=== PATIENT | male | born 1950 | race Caucasian/White ===

== ENCOUNTER 2022-01-28 20:51 | Emergency (ER) | payer MEDICARE ==
[~2022-01-28] VITALS: Ht 180.3 cm; Wt 105.9 kg
[~2022-01-28 20:51] MED LIST: CELEBREX100 MG PO; ELIGARD22.5 MG SUB-Q; LOVASTATIN20 MG PO; MULTI VITAMIN1 EACH PO; TAMSULOSIN HCL0.4 MG PO; VITAMIN D3125 MC1 PO; ZESTRIL10 MG PO; ZYLOPRIM100 MG PO
== END 2022-01-28 21:34 | disposition home or self-care (01) ==
LOC: ED 20:51
DX: T16.1XXA Foreign body in right ear, initial encounter (principal); I10 Essential (primary) hypertension; Z88.1 Allergy status to other antibiotic agents; W45.8XXA Other foreign body or object entering through skin, initial encounter
CPT/HCPCS: 69200; 99282-25

== ENCOUNTER 2022-06-17 07:00 | Day surgery (SDC) | payer MEDICARE ==
[~2022-06-17] VITALS: Ht 185.4 cm; Wt 113.0 kg
[~2022-06-17 07:00] MED LIST changes: +CALCIUM500 MG PO; +CO Q-10200 MG PO; +OMEGA 3 1,0001 EACH PO; +VITAMIN C1000 MG PO; +ZINC30 MG PO
--- NOTE | 2022-06-17 10:11 | NUR ---
06/17/22 Reina1 Maryuri Adams 1007-PATIENT ARRIVED TO PACU ON 3L NC PLACED ON 2L NC RR EVEN. PATIENT LAYING LEFT LATERAL HOB ELEVATED. PATIENT REACTIVE TO VERBAL STIMULI OPENING EYES ASKING "ARE WE DONE" ORIENTED TO PACU. REMAINS VERY DROWSY DOZES BACK TO SLEEP ABDOMEN SOFT PASSING GAS IVF INFUSING
--- NOTE | 2022-06-18 06:38 | OR ---
[facility] [address], [place] [address] Signed DATE OF OPERATION: 06/17/2022 SURGEON: Anju Ibarra MD PREOPERATIVE DIAGNOSES: 1. Personal history of colonic polyps in 2018. 2. Radiation therapy for prostate cancer in 2008. 3. Rectal bleeding associated with bowel movements. POSTOPERATIVE DIAGNOSES: 1. Distal radiation proctitis with biopsy. 2. The 4 mm polyps at 15 cm, 60 cm, 85 cm, proximal right colon and 80 cm. 3. A 5 mm polyp at 20 cm (rectosigmoid junction). PROCEDURE: Colonoscopy with hot biopsy. ESTIMATED BLOOD LOSS: None. INDICATIONS: Jarrett is a 71-year-old gentleman asked to see me for his followup colonoscopy. He lived in [place], [place] for quite some time. His last colonoscopy was in 2018 at [facility] in [place], [place]. He was pretty certain the polyp had been removed, return to track down that procedure note. He also had prostate cancer in 2008. He has undergone radiation therapy. He is having some rectal bleeding associated with bowel movements. His PET scan in 2021 showed a little thickening at the GE junction, but no other obvious areas of uptake. Upper endoscopy showed a tiny hiatal hernia. He did well with Versed and fentanyl. He gives no family history of colon cancer or polyps. In the office, I had given him a brochure on colonoscopy. We reviewed the nature of the test. There is risk including, but not limited to gas bloating, crampy abdominal pain, bleeding, perforation requiring surgery, and missed diagnosis. We also reviewed the need for IV conscious sedation. He had expressed understanding and wished to proceed. DESCRIPTION OF PROCEDURE: Jarrett was taken into the endoscopy suite and placed in the left lateral decubitus position. He was given Versed and fentanyl for the procedure. A digital rectal exam was performed. He essentially has no prostate. There was no nodularity. He had good sphincter tone. The adult colonoscope was introduced. We could immediately see an area of distal proctitis in the area of the prostate gland. We went and took a biopsy. The Electronically Signed By: ANJU IBARRA MD 06/18/22 0638 PATIENT NAME: JARRETT WALKER OPERATIVE REPORT DATE OF : 52 REPORT #: [id number] PHYSICIAN: ANJU IBARRA MD PCP: TOM MADDEN MD REPORT IS CONFIDENTIAL AND NOT TO BE RELEASED WITHOUT AUTHORIZATION [facility] [address], [place] [address] Signed scope had been pushed all up in the cecum under direct visualization of camera without difficulty. His prep was average. He could probably use a little more bowel prep on his next colonoscopy. The scope was then slowly withdrawn. We took pictures throughout for photodocumentation. The above-mentioned polyps were easily removed with the help of hot biopsy forceps. We thought we saw some diverticula going in, but we did not see those coming out. Once in the rectum, the scope had been retroflexed. We did not see any obvious additional pathology above the anal canal. After this, the gas was suctioned out. The colonoscope removed. Jarrett tolerated the procedure quite well. RECOMMENDATIONS: I will see Jarrett back in my office in 7 to 14 days to review his results. In the future, he should have additional bowel prep. Anju Ibarra MD ALB/MODL /[id number] cc: MD Anju Reyna MD Patient Chart Copies: TOM MADDEN MD, ANDREW L MD ~ Electronically Signed By: ANJU IBARRA MD 06/18/22 0638 PATIENT NAME: JARRETT WALKER OPERATIVE REPORT DATE OF : 52 REPORT #: [id number] PHYSICIAN: ANJU IBARRA MD PCP: TOM MADDEN MD REPORT IS CONFIDENTIAL AND NOT TO BE RELEASED WITHOUT AUTHORIZATION
== END 2022-06-17 11:00 | disposition home or self-care (01) ==
LOC: DS 07:00
PROVIDERS: ATTEND Colon & Rectal Surgery
PROC: 0DBN8ZX Excision of Sigmoid Colon, Via Natural or Artificial Opening Endoscopic, Diagnostic (ICD-10-PCS; 2022-06-17)
PROC: 0DBK8ZX Excision of Ascending Colon, Via Natural or Artificial Opening Endoscopic, Diagnostic (ICD-10-PCS; principal; 2022-06-17 08:15)
DX: K62.7 Radiation proctitis (principal); K63.5 Polyp of colon; Z86.010 Personal history of colon polyps; I10 Essential (primary) hypertension; N40.0 Benign prostatic hyperplasia without lower urinary tract symptoms; Z88.1 Allergy status to other antibiotic agents; K62.5 Hemorrhage of anus and rectum; C79.51 Secondary malignant neoplasm of bone; M1A.09X0 Idiopathic chronic gout, multiple sites, without tophus (tophi); E66.9 Obesity, unspecified; Z68.34 Body mass index [BMI] 34.0-34.9, adult; D12.5 Benign neoplasm of sigmoid colon; K62.1 Rectal polyp
CPT/HCPCS: 99153; G0500; J2250; J3010; J3490; J7121

== ENCOUNTER 2023-04-15 05:57 | Day surgery (SDC) | payer MEDICARE ==
[2023-04-07 08:32] VITALS: BP 130/92
[~2023-04-15] VITALS: Ht 182.9 cm; Wt 114.5 kg
--- NOTE | ~2023-04-15 | OR ---
[facility] [address], [place] [address] Draft DATE OF OPERATION: 04/15/2023 SURGEON: To Ceballos MD, PH.D. PREOPERATIVE DIAGNOSIS: Prostate adenocarcinoma. POSTOPERATIVE DIAGNOSIS: Prostate adenocarcinoma. PROCEDURE: 1. Rectal ultrasound-guided implantation of radioactive iodine-125 seeds into the prostate gland. 2. Placement of SpaceOAR Hydrogel between the prostate gland and rectum. ANESTHESIA: General. ESTIMATED BLOOD LOSS: Minimal. COMPLICATIONS: None. ANTIBIOTICS: IV levofloxacin. DIAGNOSIS: Jarrett Walker is a 72-year-old gentleman who was diagnosed with a Stilwell grade 4 + 4 equals 8, PSA 11 prostate adenocarcinoma in February 2009. He received neoadjuvant, concurrent, and adjuvant hormone therapy along with radiation to a dose of 45 Gy to the pelvic lymph nodes and 75.6 Gy to the prostate gland ending in 2009. Unfortunately, his PSA was seen to be rising after he discontinued his hormone therapy. Eventually, his hormone therapy was restarted in 2018, and his PSA went undetectable. However, his PSA has been rising over the past several years, indicating early hormone refractory disease. The patient had a prostate biopsy on October 07, 2022, demonstrating Renetta grade 3 + 4 equals 7 disease in the right lateral mid, right lateral base, and right medial mid cores and Stilwell grade 3 + 3 equals 6 prostate cancer in the right medial base core. A PSMA PET-CT scan on January 16, 2023, demonstrated uptake only in the right prostate lobe with a maximum SUV of 17.1. He elected to proceed with a salvage PATIENT NAME: JARRETT WALKER OPERATIVE REPORT DATE OF : 52 REPORT #: [id number] PHYSICIAN: TO CEBALLOS MD PCP: TOM MADDEN MD REPORT IS CONFIDENTIAL AND NOT TO BE RELEASED WITHOUT AUTHORIZATION [facility] [address], [place] [address] Draft radioactive seed implant. Prescription dose: 100 Gy prescribed to the prostate gland with a boost to a dose of 130 Gy to the gross tumor volume in the right lobe of the prostate gland utilizing iodine-125 seeds with 0.219 millicurie activity. OPERATIVE DESCRIPTION: Following induction of adequate anesthesia, the patient was placed in the treatment planning dorsal lithotomy position. The perineum was prepped with Betadine and a Rosenthal catheter was inserted into the bladder without difficulty. The scrotum was elevated onto the abdominal wall and secured with Ioban. The fixation support system was fixed to the table and the ultrasound probe was affixed to the system. Transrectal ultrasound examination of the prostate was performed with a 6 megahertz probe, taking sagittal and transverse views to localize the prostate gland and to make sure the images conformed to the preoperative plan. Once the proper angulation and position were obtained, the apparatus was fixed in position. The template was then attached to the apparatus. Then, individual preloaded needles were inserted, one needle at the time through the template and perineal skin and into the prostate gland according to the preoperative plan. Each individual needle was identified on the ultrasound images and inserted into position as close as possible to the pretreatment plan on axial images. Two anchor needles were placed initially to help stabilize the prostate gland. Then, starting anteriorly, one row of needles were placed 1st. The proper depth of each needle was then confirmed on sagittal images and also by measuring the distance from the template to the hub of each needle with a ruler. Then, needles were slowly withdrawn with the stylet in place, so that the stranded seeds were placed in the prostate gland in the proper position. Then, subsequent rows of needles were placed, one at a time with placement of all the seeds from each row before proceeding to the next row. AP pelvic x-rays were taken periodically to confirm the proper position of the radioactive seeds. The treatment plan called for 67 seeds to be implanted utilizing 21 needles. However, it was determined that needle 16 had a strand length that was too long and would result in seeds potentially ending up in the rectal wall. Therefore, needle 16 was not deployed, and 4 individual seeds were instead placed, one at a time within the prostate gland in a similar position in the right posterior aspect of the gland. Therefore, in all, 67 seeds were placed utilizing 24 needles for a total activity of 14.67 millicuries. There was minimal bony interference encounter during the procedure. Following the insertion of the seeds, an AP pelvic x-ray was taken, which revealed seeds to be in the proper position within the pelvis. Then, the ultrasound probe was repositioned in a more flattened angulation. Under ultrasound guidance, an 18-gauge needle was inserted into the perineum and advanced into the perirectal fat posterior to PATIENT NAME: JARRETT WALKER OPERATIVE REPORT DATE OF : 52 REPORT #: [id number] PHYSICIAN: TO CEBALLOS MD PCP: TOM MADDEN MD REPORT IS CONFIDENTIAL AND NOT TO BE RELEASED WITHOUT AUTHORIZATION [address] [address] Draft the prostate gland. The needle position was confirmed in both the sagittal and axial views. Saline was used to dissect the space between the Denonvilliers fascia and anterior rectal wall. Care was taken to ensure that the needle tip was not in the rectal wall. While maintaining the desired position, aspiration was performed to ensure that the needle was not in the vascular space. The assembled SpaceOAR Ana delivery system was then attached to the 18-gauge needle. Under ultrasound guidance utilizing the sagittal view, a smooth continuous injection technique was used to dispense the SpaceOAR Ana Hydrogel into the space between the prostate gland and rectum. The entire syringe contents (10 cubic centimeters total) were injected without stopping over approximately 20 seconds. Optimal visualization of the needle during Hydrogel administration was maintained at all times. No suspected penetration or compromise of the rectal wall occurred. Afterwards, the patient had a cystoscopy performed by Dr. Schultz (see separate operative report) with no seeds seen in the urethra or bladder. The patient tolerated the procedure well and was taken to the recovery room in good condition. He passed a voiding trial prior to discharge. DISPOSITION: The patient will have a follow up visit with me in one month and will have a CT scan of the pelvis performed for post implant dosimetry. He was told to phone our office if he has any difficulties or problems. CONDITION: Stable. To Ceballos MD, PH.D. GALLO/MODL /[id number] cc: DO Carrington Parisi MD Aimee Rogers, MD PATIENT NAME: JARRETT WALKER OPERATIVE REPORT DATE OF : 52 REPORT #: [id number] PHYSICIAN: TO CEBALLOS MD PCP: TOM MADDEN MD REPORT IS CONFIDENTIAL AND NOT TO BE RELEASED WITHOUT AUTHORIZATION [facility] [address], [place] [address] [place] Batsheva Maza PA-C Copies: CARRINGTON COWART MD, AIMEE MD ~ PATIENT NAME: JARRETT WALKER OPERATIVE REPORT DATE OF : 52 REPORT #: [id number] PHYSICIAN: TO CEBALLOS MD PCP: TOM MADDEN MD REPORT IS CONFIDENTIAL AND NOT TO BE RELEASED WITHOUT AUTHORIZATION
[2023-04-15 06:11] VITALS: BP 138/82
--- NOTE | 2023-04-15 06:30 | NUR ---
CHAPLAIN RHOADES RESPONDED TO REQUEST FOR PRAYER. PROVIDED PRAYER.
--- NOTE | 2023-04-15 11:04 | NUR ---
04/15/23 1104 Lexus Griffin 1043 PT TO PACU FROM OR. ORAL AIRWAY IN PLACE WITH MASK AND O2 AT 6L. RESPIRATIONS KARIN AND UNLABORED. 1045 ORAL AIRWAY DC'D. 1053 O2 DC'D. PT DENIES PAIN AND NAUSEA. PERINEUM HAS NO DRAINAGE. PT AWAKE AND CONVERSING, BUT DROWSY. STATES HE IS "GLAD IT'S DONE. I'VE BEEN DEALING WITH MR. CANCER FOR A LONG TIME."
[2023-04-15 11:21] VITALS: BP 130/80
--- NOTE | 2023-04-15 11:28 | NUR ---
LE 1120 PATIENT BACK INTO ROOM 7. REPORT RECIEVED FROM SHAINA BERNARD. PATIENT ALERT AND ORIENTED. PATIENT BREATHING EQUAL AND UNLABORED. OXYGEN SATURATIONS ABOVE 90% ON ROOM AIR. PATIENT DENIES BEING NAUSEATED. PATIENT DENIES PAIN BUT STATES "I FEEL LIKE THEY HAVE DONE SOMETHING." SURGICAL SITE HAS NO DRAINAGE AT THIS TIME. IVF INFUSING. SCD'S ON. PATIENT DRINKING WATER AND EATING PUDDING. CALL LIGHT WITHIN REACH NO FUTHER NEEDS. NO QUESTIONS AT THIS TIME.
[2023-04-15 12:20] VITALS: BP 129/83
--- NOTE | 2023-04-15 13:16 | NUR ---
LE 1220 PATIENT ABLE TO DRINK AND EAT PUDDING. PATIENT ALERT AND ORIENTED. PATIENT COMPLAINS OF BEING NAUSEATED WITH STANDING. PATIENT BACK TO BED. PATIETN ABLE TO VOID CLEAR AND YELLOW URINE. PATIENT COMPLAINING OF SOMETHING IN LEFT EYE. PATIENT EYE WASHED OUT WITH ASSISTANCE. PATIENT LAYING IN BED RESTING BREATHING EQUAL AND UNLABORED. OXYGEN SATURATIONS ABOVE 90% ON ROOM AIR. CALL LIGHT WITHIN REACH NO FUTHER NEEDS. LE 1300 WALKED IN ON PATIENT DRESSING SELF. PATIENT STATES NAUSEA HAS IMPROVED. PATIENT GAIT IMPROVED. PATIENT STILL FEELS LIKE SOMETHING IS IN HIS EYE. PATIENT TO MONITOR AT HOME. PATIENT WANTING TO DISCHARGE. PATIENT GIVEN DISCHARGE INSTRUCTIONS. NO QUESTIONS OR FUTHER NEEDS. IV D/C'D WNL. PATIENT WAS WHEELED OUT TO PRIVATE AUTO TO FRIEND ONEL THAT HE LIVES WITH.
--- NOTE | 2023-04-16 18:53 | OR ---
[facility] [address], [place] [address] Signed DATE OF OPERATION: 04/15/2023 SURGEON: Samir Jackson MD PREOPERATIVE DIAGNOSIS: History of recurrent hormone refractory prostate cancer. POSTOPERATIVE DIAGNOSIS: History of recurrent hormone refractory prostate cancer. NAMES OF PROCEDURE: Diagnostic cystourethroscopy. ANESTHESIA: General. ESTIMATED BLOOD LOSS: None. DRAINS: None. COMPLICATIONS: None. INDICATIONS FOR PROCEDURE: Mr. Walker is a 72-year-old gentleman with a history of recurrent hormone refractory prostate cancer, who presents today to undergo brachytherapy seed implant by Dr. Keenan Ceballos. Dr. Ceballos has requested that I perform cystoscopy after seed placement to evaluate for any potential brachytherapy seeds within the bladder or the prostate. FINDINGS: 1. On cystoscopy, there was no evidence of any suspicious masses, lesions, or stones. In particular, there is no evidence of any rogue seed implants present within either the bladder or the urethra. 2. There is just a minor amount of lateral lobe hypertrophy, and there is no evidence of urethral stricture or stenosis. DESCRIPTION OF PROCEDURE: After informed consent was obtained, the patient was taken back to the operating room. Electronically Signed By: SAMIR JACKSON MD 04/16/23 185 PATIENT NAME: CLEMENT WALKER OPERATIVE REPORT DATE OF : 52 REPORT #: [id number] PHYSICIAN: SAMIR JACKSON MD PCP: TOM MADDEN MD REPORT IS CONFIDENTIAL AND NOT TO BE RELEASED WITHOUT AUTHORIZATION [facility] [address] [place], [place] [address] Signed He first underwent transrectal ultrasound-guided placement of brachytherapy seeds by Dr. Keenan Ceballos. Once Dr. Ceballos was finished, he was re-prepped and draped in preparation for diagnostic cystoscopy. I then advanced a 17-Grenadian flexible cystoscope through his urethra into his bladder under direct visualization. Panendoscopic views of the bladder were then obtained. Please see above findings. I slowly withdrew the cystoscope and removed the cystoscope from the patient's bladder. The patient was straight cathed with a 16-Grenadian red rubber catheter and approximately half of his bladder was drained of irrigation fluid. The procedure was then terminated. The patient will now be transferred to the postanesthesia care unit in stable condition. MD AIYANA Duarte/MEREDITH /[id number] Copies: ~ Electronically Signed By: SAMIR JACKSON MD 04/16/23 1853 PATIENT NAME: CLEMENT WALKER OPERATIVE REPORT DATE OF : 52 REPORT #: [id number] PHYSICIAN: SAMIR JACKSON MD PCP: TOM MADDEN MD REPORT IS CONFIDENTIAL AND NOT TO BE RELEASED WITHOUT AUTHORIZATION
== END 2023-04-15 13:00 | disposition home or self-care (01) ==
LOC: DS 05:57 → EDSTATUS 07:00 → US 07:00 → DS 13:00
PROVIDERS: ATTEND Radiology Radiation Oncology
PROC: DV1 Radiation Therapy, Male Reproductive System, Brachytherapy (ICD-10-PCS; principal; 2023-04-15 07:30)
DX: C61 Malignant neoplasm of prostate (principal)
CPT/HCPCS: 00910; 76000; 76873; 77470; C2638; J0131; J1100; J1956; J2001; J2405; J2704; J3010; J3490; J7121